=== PATIENT | male | born 1955 ===

== ENCOUNTER → 2017-09-05 | Emergency (ER) | payer OTHER ==
[~2017-09-05] VITALS: Ht 165.1 cm; Wt 81.6 kg
[~2017-09-05] MED LIST: ALLEGRA30 MG; ALLEGRA60 M1; COZAAR100 MG; DOLOGESIC CAPSU1 CAP PO; HYZAAR 100-251 UDTAB; HYZAAR 100/25 T1 TAB; MIRAPEX ER1.5 MG; NEUPRO; NORVASC5 MG; OMEPRAZOLE; SINEMET 10-1001 EACH; SINGULAIR10 MG; SINGULAIR5 MG; ZANTAC150 M1; ZANTAC150 M2
== END | disposition home or self-care (01) ==
LOC: ER 16:49 → CPU-OBS 16:58
DX: R07.89 Other chest pain (principal); J11.1 Influenza due to unidentified influenza virus with other respiratory manifestations; K29.70 Gastritis, unspecified, without bleeding
CPT/HCPCS: G0378; G0379; 93005

== ENCOUNTER 2017-09-24 18:32 | Emergency (ER) | payer OTHER ==
[~2017-09-24] VITALS: Ht 165.1 cm; Wt 81.2 kg
== END 2017-09-24 23:01 | disposition home or self-care (01) ==
LOC: ER 18:32
DX: M54.2 Cervicalgia (principal); M62.838 Other muscle spasm

== ENCOUNTER → 2017-10-23 | Emergency (ER) | payer OTHER ==
[~2017-10-23] VITALS: Ht 165.1 cm; Wt 79.4 kg
[~2017-10-23] MED LIST changes: +LEVSIN/SL0.125 MG SL
== END | disposition home or self-care (01) ==
LOC: ER 19:41 → CPU-OBS 19:56
DX: R07.89 Other chest pain (principal)
CPT/HCPCS: G0378; G0379; 93005

== ENCOUNTER 2017-11-10 08:29 | Emergency (ER) | payer OTHER ==
[~2017-11-10] VITALS: Ht 165.1 cm; Wt 76.2 kg
[2017-11-10] MEDS ORDERED: HYZAAR 100-251 EACH (08:56)
== END 2017-11-10 17:30 | disposition home or self-care (01) ==
LOC: ER 08:29
DX: K52.9 Noninfective gastroenteritis and colitis, unspecified (principal); J06.9 Acute upper respiratory infection, unspecified

== ENCOUNTER 2018-11-29 10:19 | Emergency (ER) | payer OTHER ==
[~2018-11-29] VITALS: Ht 167.6 cm; Wt 71.7 kg
[~2018-11-29 10:19] MED LIST changes: +HYZAAR 100-251 EACH
[2018-11-29] MEDS ORDERED: METFORMIN HCL500 M3 PO (10:30)
== END 2018-11-29 12:38 | disposition home or self-care (01) ==
LOC: ER 10:19
DX: K52.9 Noninfective gastroenteritis and colitis, unspecified (principal)